=== PATIENT | female | born 1985 | race Caucasian/White ===

== ENCOUNTER → 2017-03-14 | Outpatient (CLI) | payer OTHER ==
[~2017-03-14] MED LIST: CHOL1000 PO; CLR10 PO; ESCI1TAB6 PO; FERR324T PO; NORE5TAB5 PO; PRAZ1CAP10 PO; TOPI25TA99 PO
[2017-03-14 14:03] LABS: ESTIMATED AVERAGE GLUCOSE 105 mg/dl; HA1C FLAG Normal (Normal)
[2017-03-14 14:09] LABS: ALT/SGPT 27 U/L (12-78); AST/SGOT 8 U/L (15-37); BLOOD UREA NITROGEN 9 mg/dl (7-18); BUN/CREATININE RATIO 10.7 (10-20); CALCIUM 9.2 mg/dl (8.5-10.1); CARBON DIOXIDE 26 mmol/L (21-32); CHLORIDE 108 mmol/L (98-107); CREATININE 0.82 mg/dl (0.60-1.20); GLUCOSE 90 mg/dl (70-99); POTASSIUM 3.9 mmol/L (3.5-5.1); SODIUM 141 mmol/L (136-145)
[2017-03-14 14:12] LABS: ALB/GLOB RATIO 0.8 (0.9-2); ALKALINE PHOSPHATASE 95 U/L (45-117)
== END | disposition home or self-care (01) ==
LOC: C.LABBC 11:15
PROVIDERS: ATTEND Family Medicine
DX: R73.03 Prediabetes (principal); R55 Syncope and collapse

== ENCOUNTER → 2017-03-21 | Day surgery (SDC) | payer OTHER ==
[~2017-03-21] VITALS: Ht 172.7 cm; Wt 136.0 kg
[2017-03-21 12:58] VITALS: BP 130/60; PULSE 88; O2SAT 99; Ht 172.7 cm; Wt 136.0 kg
[2017-03-21 13:35] VITALS: BP 147/76; PULSE 70; O2SAT 95
--- NOTE | 2017-03-21 17:30 | TILT TABLE TEST RESULTS ---
PROCEDURE PERFORMED: Head-up tilt-table testing. STAFF DEVELOPMENT CHEMIST: Gibson Villarreal MD INDICATION: Mrs. Carrie Plunkett is a 31-year-old woman with a history of recurrent syncope. Based on the nature of her symptoms, she was felt to be a good candidate for tilt-table testing to achieve additional diagnostic information. PROCEDURE IN DETAIL: The patient was informed of risks, benefits and alternatives to the intended procedure. She understood such and wished to proceed. She was placed in the supine position on a tilt-table and secured into place. Continuous hemodynamic monitoring with telemetry and blood pressure as well as pulse oximetry were then initiated. After the initial period of lying flat, patient was tilted to 70 degrees and hemodynamics and symptoms mentored. During the test, patient did experience some symptoms of nausea, diaphoresis and vomited. She also had some presyncopal symptoms at this point. She was returned to the supine position. Her symptoms were allowed to resolve and her hemodynamics returned normal prior to discharge. There were no immediate complications. FINDINGS: Baseline blood pressure was 105/80 with a heart rate of 68. With head-up tilt-table testing, there was no significant derangement until minute 16 when patient developed the aforementioned symptoms, her pulse fell to 46 and the blood pressure 92/45. At the conclusion of the test, patient's blood pressure was 135/73 with a pulse of 73. IMPRESSION: 1. Positive tilt-table test with symptoms and hemodynamic response consistent with no cardiogenic reflex, both vasodepressor and cardioinhibitory. 2. No actual syncope occurred during the test. 3. The patient felt the symptoms on today's test were distinct from those she generally experiences prior to syncope.
== END | disposition home or self-care (01) ==
LOC: C.CATH 12:15
PROVIDERS: ATTEND Family Medicine
DX: R55 Syncope and collapse (principal)

== ENCOUNTER → 2017-06-28 | Outpatient (CLI) | payer OTHER ==
[2017-06-28 17:01] LABS: BASO % 0.3 %; BASO ABS # 0.03 K/uL (0-0.2); COMPLETE YES; EOS % 1.2 %; HEMATOCRIT 41.5 % (37-47); IG% 0.3 %; LYMPH % 33.5 %; LYMPH ABS # 3.77 K/uL (1.2-3.4); MEAN CELL VOLUME 86.3 fL (80-100); MEAN CORPUSCULAR HEMOGLOBIN 28.7 pg (25-34); MEAN CORPUSCULAR HGB CONC 33.3 g/dl (32-36); MEAN PLATELET VOLUME 10.1 fL (7.4-10.4); MONO % 8.3 %; NEUT % 56.4 %; PLATELET COUNT 351 K/uL (130-400); RED BLOOD COUNT 4.81 M/uL (4.2-5.4); WHITE BLOOD COUNT 11.26 K/uL (4.8-10.8)
[2017-06-28 17:13] LABS: TOTAL IRON BINDING CAPACITY 334 mcg/dl (250-450)
[2017-07-01 16:40] LABS: GLIADIN DEAMIDATED IgA AB 5 UNITS (<20); GLIADIN DEAMIDATED IgG AB 3 UNITS (<20); RETICULIN IgA AB Negative (Negative)
== END | disposition home or self-care (01) ==
LOC: C.LABBC 14:10
PROVIDERS: ATTEND Physician Assistant
DX: D50.9 Iron deficiency anemia, unspecified (principal)